=== PATIENT | male | born 1990 | race Caucasian/White ===

== ENCOUNTER 2016-07-20 20:37 | Emergency (ER) | payer OTHER ==
[2016-07-20] MEDS ORDERED: IBUPROFEN 600 MG TAB PO ONE (21:05)
[2016-07-20 21:13] VITALS: BP 109/80; PULSE 110; RESP 14; TEMP 99.9; O2SAT 95
[2016-07-20] MEDS ORDERED: PENICILLIN VK 500 MG TAB PO ONE (22:02)
--- NOTE | 2016-07-20 22:06 | UCPHY ---
H & P Time Seen by Provider: 07/20/16 21:22 Patient Type: Established HPI/ROS: This patient has wisdom tooth pain lower left side that were ruptured over the past couple days. He reports associated throat pain and lymph node swelling in the left neck. He describes 7/10 throat pain and headache that is moderate intensity. He also sore muscles in his neck. He reports associated odynophagia. He has also had low-grade fevers. No exacerbating factors are noted. ROS: No high fevers or chills. No confusion. HEENT: No facial swelling. No intraoral lesions. Neuro: No confusion. No focal neuro symptoms. Pulmonary: No cough GI: No vomiting. 7 point ROS is otherwise negative. Past Medical/Surgical History: No recent dental procedures though he did just to rub his left wisdom tooth over the past few days. Smoking Status: Current every day smoker Physical Exam: Physical Exam Vital signs are normal. General: No acute distress HEENT: Atraumatic. No submental swelling. Patient has low recently erupted left lower wisdom tooth with associated tenderness and the periodontal region but no fluctuance is appreciated. There is slight erythema extends from this to the posterior pharyngeal area. No exudates. No dysphonia. No drooling or stridor. No other intraoral lesions or abnormalities are noted. No trismus. Ears: External canals TMs clear bilaterally Eyes: Pupils equal and react to light. Extraocular motions are intact. Neck: Supple with no meningismus. Kernig's and Brudzinski's are negative. He has mild left anterior cervical lymphadenopathy with no overlying erythema or fluctuance. Lungs: Clear to auscultation bilaterally. No respiratory distress. Cardiac: Regular rate and rhythm with no murmur gallop or rub. Skin: No rash or pallor. Neuro: GCS of 15. Cranial nerves 2-12 grossly intact. Initial differential diagnosis: Periodontitis from recent eruption of wisdom tooth, pharyngitis-viral versus strep Constitutional: Initial Vital Signs Temperature (C) 37.7 C 07/20/16 21:10 Heart Rate 110 H 07/20/16 21:10 Respiratory Rate 14 07/20/16 21:10 Blood Pressure 109/80 07/20/16 21:10 O2 Sat (%) 95 07/20/16 21:10 O2 Delivery Mode Room Air Allergies/Adverse Reactions: No Known Allergies Allergy (Verified 07/20/16 21:09) Home Medications: Medication Instructions Recorded Albuterol 07/20/16 Penicillin V Potassium [Penicillin 500 mg PO BID #20 07/20/16 VK] MDM/Departure - MDM Diagnostics: Rapid strep is negative Medications Given: Discontinued Medications Penicillin V Potassium (Pen Vk) 500 mg PO EDNOW ONE PRN Reason: Protocol Stop: 07/20/16 22:03 Last Admin: 07/20/16 22:15 Dose: 500 mg - Depart Disposition: Home, Routine, Self-Care Clinical Impression: Periodontitis Pharyngitis Qualifiers: Pharyngitis/tonsillitis etiology: unspecified etiology Qualified Code(s): J02.9 - Acute pharyngitis, unspecified Condition: Good Instructions: Pharyngitis (ED), Toothache (ED) Additional Instructions: Diagnosis: 1. Periodontitis-mild infection around was in tooth eruption 2. Pharyngitis Plan: Ibuprofen and Tylenol for discomfort as needed Penicillin antibiotic Follow up with a dentist sometime within the next 5-10 days Return for any significant worsening despite treatment plan Prescriptions: Penicillin V Potassium [Penicillin VK] 500 mg PO BID #20 Referrals: NONE *PRIMARY CARE P,. [Primary Care Provider] - As per Instructions - PQRS PQRS Measurement: NA
== END 2016-07-20 22:20 | disposition home or self-care (01) ==
LOC: CED 20:37
DX: K04.7 Periapical abscess without sinus (principal); J02.9 Acute pharyngitis, unspecified; F17.200 Nicotine dependence, unspecified, uncomplicated
CPT/HCPCS: 87880-PO; 99214-PO; G0463-PO

== ENCOUNTER → 2016-07-31 | Outpatient (CLI) | payer OTHER | LOC: FIMAGING 15:04 | PROVIDERS: ATTEND Internal Medicine Hematology & Oncology | DX: J40 Bronchitis, not specified as acute or chronic (principal) ==